=== PATIENT | female | born 1995 | race Caucasian/White ===

== ENCOUNTER 2017-06-30 22:20 | Observation (INO) | payer BC, OTHER ==
[~2017-06-30] VITALS: Ht 160 cm; Wt 57.6 kg
[~2017-06-30 22:20] MED LIST: ALBU0.0912 INH; FERR-142 PO; PREN-385 PO
[2017-06-30] MEDS ORDERED: LACTATED RINGERS 1,000 ML IV SCH (23:10)
[2017-06-30] MEDS ORDERED: MORPHINE SULFATE 10 MG/ML SYR IVP PRN (23:10)
[2017-07-01] MEDS ORDERED: MORPHINE SULFATE 10 MG/ML SYR ONE (00:02)
[2017-07-01] MEDS ORDERED: ONDANSETRON 4 MG/2 ML VIAL IVP PRN (00:20)
[2017-07-01] MEDS ORDERED: ONDANSETRON 4 MG/2 ML VIAL ONE (00:32)
[2017-07-01 00:41] VITALS: BP 90/55
== END 2017-07-01 01:05 | disposition home or self-care (01) ==
LOC: MLD 22:20
PROVIDERS: ADMIT Obstetrics & Gynecology; ATTEND Obstetrics & Gynecology
DX: O99.613 Diseases of the digestive system complicating pregnancy, third trimester (principal); K80.80 Other cholelithiasis without obstruction; Z3A.31 31 weeks gestation of pregnancy
CPT/HCPCS: 76705; 81000; 96361; 96374; 96375; G0378; J2270; J2405; J7120; Q0092

== ENCOUNTER 2018-08-06 14:04 | Emergency (ER) | payer OTHER ==
[~2018-08-06] VITALS: Ht 160 cm; Wt 51.9 kg
[2018-08-06 14:07] VITALS: BP 111/65
--- NOTE | 2018-08-06 14:38 | NUR ---
PATIENT PRESENTS TO ED WITH C/O SORETHROAT---NO S/S RESP DISTRESS NOTED WITH FULL CLEAR SPEECH.,NO DROOLING NOTED---- . DENIES N/V/D; SKIN IS PINK/WARM/DRY; AAOX4 WITH EVEN AND STEADY GAIT; LUNGS CLEAR BL; HR EVEN AND REGULAR; PT DENIES ANY FEVER, CP, SOB, OR COUGH AT THIS TIME; PATIENT STATES PAIN OF 8/10 AT THIS TIME; VSS; PATIENT POSITIONED FOR COMFORT; HOB ELEVATED; BEDRAILS UP X2; BED DOWN. ER MD MADE AWARE OF PT STATUS.
[2018-08-06] MEDS ORDERED: ACETAMINOPHEN 325 MG TAB PO ONE (14:55)
--- NOTE | 2018-08-06 15:03 | NUR ---
RAPID STREP COLLECTED
[2018-08-06 15:45] VITALS: BP 118/72
--- NOTE | 2018-08-06 15:45 | NUR ---
Patient discharged with v/s stable. Written and verbal after care instructions given and explained. Patient alert, oriented and verbalized understanding of instructions. Ambulatory with steady gait. All questions addressed prior to discharge. ID band removed. Patient advised to follow up with PMD. Rx of METHYLPREDNISOLONE 4MG, PENICILLIN VK 500MG AND MOTRIN 800MG given. Patient educated on indication of medication including possible reaction and side effects. Opportunity to ask questions provided and answered.
== END 2018-08-06 15:45 | disposition home or self-care (01) ==
LOC: MED 14:04
DX: J02.0 Streptococcal pharyngitis (principal); J45.909 Unspecified asthma, uncomplicated; Z88.8 Allergy status to other drugs, medicaments and biological substances; Z91.018 Allergy to other foods; Z79.899 Other long term (current) drug therapy
CPT/HCPCS: 87081; 99283

== ENCOUNTER 2019-01-17 21:02 | Emergency (ER) | payer OTHER ==
[~2019-01-17] VITALS: Ht 160 cm; Wt 54.4 kg
[2019-01-17 21:09] VITALS: BP 110/73
--- NOTE | 2019-01-17 21:11 | NUR ---
TO LOBBY A/W BED, AMBULATORY, VSS
--- NOTE | 2019-01-17 22:04 | NUR ---
PT AMBULATORY TO ER BED 12.
--- NOTE | 2019-01-17 22:25 | NUR ---
BIB SELF WITH C/O MIGRAINE X3 DAYS WITH N/V X2 TODAY. STATES SHE IS TAKING AMITRIPTYLINE PRESCRIBED, SHE ALSO REPORTS TAKING 800MG IBUPROFEN WITH NO RELIEF. STATES PAIN 07/04. DENIES CHANGES IN VISON, PERRL. BED IN LOW LOCKED POSITION.
[2019-01-17] MEDS ORDERED: NACL 0.9% 500 ML IV ONE (23:10)
[2019-01-17] MEDS ORDERED: PROCHLORPERAZINE 10 MG/2 ML VIAL IVP ONE (23:10)
[2019-01-17] MEDS ORDERED: MORPHINE SULFATE 2 MG/ML SYR IVP ONE (23:10)
[2019-01-17] MEDS ORDERED: diphenhydrAMINE 50 MG/ML VIAL IVP ONE (23:10)
[2019-01-18 00:55] VITALS: BP 108/62
--- NOTE | 2019-01-18 00:55 | NUR ---
Patient discharged with v/s stable. Written and verbal after care instructions given and explained. Patient alert, oriented and verbalized understanding of instructions. Ambulatory with . All questions addressed prior to discharge. ID band removed. Patient advised to follow up with PMD. Rx of TRAMADOL AND ZOFRAN given. Patient educated on indication of medication including possible reaction and side effects. Opportunity to ask questions provided and answered.
== END 2019-01-18 00:55 | disposition home or self-care (01) ==
LOC: MED 21:02
DX: G43.909 Migraine, unspecified, not intractable, without status migrainosus (principal); J45.909 Unspecified asthma, uncomplicated; Z79.899 Other long term (current) drug therapy; Z88.8 Allergy status to other drugs, medicaments and biological substances
CPT/HCPCS: 96361; 96374; 96375; 99283; J0780; J1200; J2270; J7030

== ENCOUNTER 2019-02-17 18:13 | Emergency (ER) | payer OTHER ==
[~2019-02-17] VITALS: Ht 160 cm; Wt 54.4 kg
[2019-02-17 18:25] VITALS: BP 100/53
--- NOTE | 2019-02-17 19:15 | NUR ---
PATIENT AMBULATED TO ER BED 3.
--- NOTE | 2019-02-17 19:25 | NUR ---
PT BIB SELF C/O LEFT FOOT PAIN. PT STATES SUDDEN ONSET OF LEFT FOOT PAIN, DENIES INJURY OR TRAUMA, STATES SHE WALKS ALOT AT WORK. PT STATES 7/10 CONSTANT ACHING PAIN. --NO DEFORMITY OR SWELLING NOTED; MILD REDNESS. PEDIAL PULSES WNL BL. CAP REFIL <2. SKIN WARM, DRY AND INTACT. SAFETY PRECAUTIONS IN PLACE. PENDING ER MD ACEVEDO. PMH: ASTHMA
[2019-02-17] MEDS ORDERED: HYDROcodone/APAP 5/325 MG 1 TAB TAB PO ONE (20:10)
--- NOTE | 2019-02-17 20:15 | NUR ---
X-RAY AT BEDSIDE.
[2019-02-17 21:58] VITALS: BP 107/81
--- NOTE | 2019-02-17 21:58 | NUR ---
Patient discharged with v/s stable. Written and verbal after care instructions given and explained. Patient alert, oriented and verbalized understanding of instructions. Ambulatory with steady gait. All questions addressed prior to discharge. ID band removed. Patient advised to follow up with PMD. Rx of NAPROSYN 500MG given. Patient educated on indication of medication including possible reaction and side effects. Opportunity to ask questions provided and answered.
== END 2019-02-17 21:58 | disposition home or self-care (01) ==
LOC: MED 18:13
DX: S93.602A Unspecified sprain of left foot, initial encounter (principal); J45.909 Unspecified asthma, uncomplicated; Z88.8 Allergy status to other drugs, medicaments and biological substances; Z79.899 Other long term (current) drug therapy; X58.XXXA Exposure to other specified factors, initial encounter; Y93.89 Activity, other specified; Y92.89 Other specified places as the place of occurrence of the external cause; Y99.8 Other external cause status
CPT/HCPCS: 73630; 99283; Q0092